=== PATIENT | male | born 1985 | race Caucasian/White ===

== ENCOUNTER 2018-11-01 19:39 | Emergency (ER) | payer OTHER ==
[~2018-11-01] VITALS: Wt 99.8 kg
[~2018-11-01 19:39] MED LIST: AUGMENTIN 875-875 MG PO; LOTRISONE 0.05%1 CRE TP; MEDROL DOSEPAK4 MG PO; MOTRIN600 MG PO; Motrin,Rufen800 MG PO; PREDNISONE20 M1 PO; PROAIR HFA8.5 GM IH; PROAIR HFA8.5 GM INH; TYLENOL W/CODE480 ML PO; ZITHROMAX250 MG PO
[2018-11-01] MEDS ORDERED: CEPHALEXIN500 M1 PO (20:50)
== END 2018-11-01 20:54 | disposition home or self-care (01) ==
LOC: ED 19:39
DX: S61.211A Laceration without foreign body of left index finger without damage to nail, initial encounter (principal); Z79.2 Long term (current) use of antibiotics; Z79.899 Other long term (current) drug therapy; W22.8XXA Striking against or struck by other objects, initial encounter; Y93.89 Activity, other specified; Y92.89 Other specified places as the place of occurrence of the external cause; Y99.8 Other external cause status